=== PATIENT | female | born 1965 | race Two or more races ===

== ENCOUNTER → 2016-05-29 | Outpatient (CLI) | payer SELFPAY | END | disposition home or self-care (01) | LOC: RAD.S 07:41 | DX: R10.32 Left lower quadrant pain (principal); N20.0 Calculus of kidney; K57.30 Diverticulosis of large intestine without perforation or abscess without bleeding ==

== ENCOUNTER 2016-06-18 19:50 | Emergency (ER) | payer SELFPAY ==
--- NOTE | 2016-06-21 04:09 | ER ---
ADMIT: 06/18/2016 RM/LOC: [facility] MR#: [id number] [place], [place] [id number] [place] [address] Emergency Room Report SEX: F AGE: 50 : 1965 DATE: 06/18/2016 BRIEF ADDENDUM: Please see my T-sheet for complete review of systems, past medical history, and physical exam. CHIEF COMPLAINT: Rib pain. HISTORY OF PRESENT ILLNESS: This is a 50-year-old female, who presents to the ER with 2 months duration of some "rib pain." The patient states this started acutely about 2 months ago. Does not recall any aggravating injury. She states this pain is getting worse to the point that she can no longer sleep on her left side. She describes this as a sharp pain about the anterior left thorax wrapping around to the posterior side. Admits to some nausea in the morning. Does not really establish a relationship between the pain and nausea however worse with deep breaths and movement. She has not found anything to make this better and she has been seeing her primary care provider.. She was in the ER previously with some similar pain, they did a CT abdomen and pelvis, which was pretty unremarkable. She does have past medical history for diabetes and hyperlipidemia. She has been using Aleve with little improvement. COURSE IN THE EMERGENCY ROOM: The patient was seen and examined. Significant for some tenderness on the left anterior chest wall extending into the posterior thorax. There is no obvious ecchymosis, swelling, or bruising. There is no rash consistent with some sort of zoster outbreak. It is painful to the touch; however, no abdominal tenderness. I did get a chest x-ray, AP and lateral, negative for any fracture, the lungs look well aerated. IMPRESSION: Muscle strain, chest wall. DISPOSITION: Did provide the patient with a script for physical therapy to evaluation and treat. I think this is likely musculoskeletal in nature. Continue the Aleve twice a day with food. Apply ice or heat as needed for pain. Follow up with primary care as needed. Continue all her home medications. Questions sought and answered to the best of ability and to the patient's satisfaction. Discharged in stable condition. GABBY Goff / Jose Thapa MD / lidia JOB #: [id number] CC: Jose Thapa MD, Attending Physician Cinthia Jane APRN-TELESCOPE REPAIRER, Family Physician
== END 2016-06-18 21:40 | disposition home or self-care (01) ==
LOC: ER 19:50
DX: S29.011A Strain of muscle and tendon of front wall of thorax, initial encounter (principal); E11.9 Type 2 diabetes mellitus without complications; E78.00 Pure hypercholesterolemia, unspecified; Z79.84 Long term (current) use of oral hypoglycemic drugs; X58.XXXA Exposure to other specified factors, initial encounter